=== PATIENT | female | born 1960 | race Caucasian/White ===

== ENCOUNTER → 2023-11-06 14:09 | Outpatient (REF) | payer OTHER, SELFPAY | LOC: WDC 14:09 | PROVIDERS: ATTENDING PHYSICIAN Nurse Practitioner Family | DX: Z12.31 Encounter for screening mammogram for malignant neoplasm of breast (principal) | CPT/HCPCS: 77063; 77067 ==

== ENCOUNTER 2023-11-26 04:42 | Emergency (ER) | payer OTHER, SELFPAY ==
[2023-11-26 04:46] VITALS: BP 156/81
--- NOTE | 2023-11-26 05:12 | ED.GENMED ---
History of Present Illness
General
Chief Complaint: Skin Problem
Source: patient
Exam Limitations: none
Time Seen by Provider: 11/26/23 05:03
Nursing documentation reviewed up to this point in time: agreed with
History of Present Illness
History of Present Illness:
This is a 63-year-old woman who was vacationing with her family in the [facility] last week when she developed redness, pain and swelling to her posterior lateral right upper arm just proximal to her elbow. Redness and swelling noted 1 week ago
and upon returning home from the [facility] she stopped in an urgent care on Thursday, 5 days ago was diagnosed with cellulitis and started on a course of Keflex which she has been taking 4 times daily. She does admit that redness and swelling
have been improving but she continues with some intermittent pain to the area and was concerned that 'we were missing something'
She has not had a fever nor chills. She denies pain to her elbow joint nor pain with range of motion of her elbow nor pain with range of motion of her shoulder.
She has not been taking anything for discomfort.
Her only daily medication is metoprolol.
No history of diabetes nor immunocompromise.
No history of similar episodes in the past.
Past History
Past History
ED Past Medical History: Arrthythmia (SVT)
ED Past Surgical History: None
Social History
Tobacco: Non-smoker
Alcohol: None
Drug: None
Personal:
Living: with family
Family History
Family History: Negative Diabetes, Hypertension or CAD
Phy Exam
Physical Exam
Physical Exam:
GENERAL: 63-year-old woman appears her stated age, bright and alert, pleasant, appears in no acute distress. is accompanying. Afebrile.
NECK: Nontender, no adenopathy.
ENT: Oral mucosa is moist.
LUNGS: No respiratory distress. Respirations are easy nonlabored.
ABDOMEN: Nontender.
NEUROLOGICAL: Alert and oriented x3, no focal neuro deficits. Gait is beverly and steady.
SKIN: Warm and dry, normal color, moderately tanned sun exposed skin. The distal aspect of the right upper arm along the posterolateral aspect has a very faint patch of erythema with minimal superficial skin desquamation. There is no soft tissue
swelling, no palpable heat, no palpable tenderness. There is no evidence of insect bite, no ulceration, no lymphangitis. There is no tenderness about the elbow, no joint effusion and full elbow range of motion without difficulty nor pain.
MUSCULOSKELETAL: No C/C/E. peripheral pulses are full and equal b/l. No palpable tenderness.
PSYCH: Normal and appropriate interaction.
Course
Orders/Labs/Results
Orders:
Orders
11/26/23 05:11
Ibuprofen [Motrin] 800 mg PO NOW STA
Vital Signs
Initial and Last Documented VS:
Initial Vital Signs
Temp Pulse Resp BP Pulse Ox
98.1 F 68 16 156/81 98
11/26/23 04:46 11/26/23 04:46 11/26/23 04:46 11/26/23 04:46 11/26/23 04:46
Last Documented Vital Signs
Temp Pulse Resp BP Pulse Ox
98.1 F 68 16 156/81 98
11/26/23 04:46 11/26/23 04:46 11/26/23 04:46 11/26/23 04:46 11/26/23 04:46
MDM/Problems Addressed
Differential Diagnosis Includes:
History and exam consistent with resolving cellulitis right upper arm. There is very minimal skin desquamation that appears to be healing skin in nature.
There is no palpable tenderness, no soft tissue swelling, no bony tenderness and full range of motion.
Recommend ibuprofen as needed for pain as well as recommend she continue cephalexin until finished as this appears to be effective treatment for cellulitis.
She has no history of diabetes nor immunocompromise and overall appears to be healing/resolving. No indication for radiologic studies nor laboratory studies.
I do recommend she apply local moisturizer to her skin and otherwise follow-up with primary care physician.
*Pulse Oximetry
Patient hypoxic: no
*Critical Care Note
Total Time (30-74mins, 75-104mins- exclusive of procedures): Not Applicable
ED Attending Note
-
Portions of this chart may have been created with voice recognition software.� Occasional wrong word or��sound alike� substitutions may have occurred due to the inherent limitations of voice recognition software.
Discharge Plan
Departure
Patient Disposition: Home (Routine Discharge)
Date of Disposition: 11/26/23
Time of Disposition: 05:21
Patient with high blood pressure during this ER visit?: Yes
Condition: Good
Discharge Problem:
resolving cellulitis right arm
Instructions: Cellulitis (Skin Infection), Adult (DC), BLOOD PRESSURE
Prescriptions:
New
ibuprofen 800 mg tablet
800 mg PO QIDPRN PRN (Reason: pain, fever) Qty: 30 0RF
No Action
metoprolol tartrate 25 mg Tablet
25 mg PO BID
Referrals:
Cayden Pearce MD [Non-Admitting Privileges] - Call in 1-3 days for appt
Interventions
Interventions:
*Risk Screen - Suicide Last Done: 11/26/23 04:46
*Neglect/Abuse Screening Last Done: 11/26/23 04:46
*ED COVID-19 Vaccine History Last Done: 11/26/23 04:46
Discharge Date and Time
Print Language: DOMINICAN
[2023-11-26] MEDS: MOTRIN 800 MG PO (05:25)
== END 2023-11-26 05:43 | disposition home or self-care (01) ==
LOC: EMR 04:42
PROVIDERS: EMERGENCY PHYSICIAN Emergency Medicine; FAMILY PHYSICIAN Family Medicine
DX: L03.113 Cellulitis of right upper limb (principal); M79.621 Pain in right upper arm; R03.0 Elevated blood-pressure reading, without diagnosis of hypertension; I47.10 Supraventricular tachycardia, unspecified; Z79.899 Other long term (current) drug therapy; Z88.8 Allergy status to other drugs, medicaments and biological substances
CPT/HCPCS: 99283

== ENCOUNTER 2025-03-02 22:54 | Emergency (ER) | payer OTHER, SELFPAY ==
[2025-03-02 23:04] VITALS: BP 156/95
[2025-03-02 23:35] VITALS: BP 131/86
[2025-03-02 23:40] VITALS: BMI 32.8
[2025-03-02 23:58] VITALS: BP 129/80; BP 133/74; BP 134/85; PULSE 80; PULSE 81; PULSE 92
[2025-03-03] VITALS: BP 134/85
[2025-03-03 00:01] VITALS: BP 129/80
--- NOTE | 2025-03-03 00:10 | ED.GENMED ---
History of Present Illness
General
Chief Complaint: Heart Rate Problem
Source: patient
Exam Limitations: none
Time Seen by Provider: 03/02/25 23:45
Nursing documentation reviewed up to this point in time: agreed with
History of Present Illness
History of Present Illness:
Patient with history of SVT over 10 years ago, noted on Holter monitor, currently taking metoprolol 25 mg twice daily, presents to ED secondary to sudden sensation of 'heart pounding', as she was walking upstairs to go to sleep. Denies dizziness.
Denies nausea or vomiting. Denies chest pain. Denies shortness of breath. Patient does report feeling 'awful'. When she was diagnosed with SVT 10 years ago, patient was experiencing multiple episodes of near syncope. While she was wearing
Holter monitor, although she was not expressing any symptoms, there was 1 brief episode of heart rate in 140s. Based on that reading, after discussion with her at [facility], patient was started on metoprolol twice daily. Since then,
patient has not had any similar symptoms. Denies recent illness. Denies recent change in diet. Denies recent travel. Patient states that she has been eating normally and drinking enough fluids during the day. At the time of my evaluation in ED,
patient states that her symptoms has resolved completely, confirmed by repeat EKG.
Past History
Past History
ED Past Medical History: Arrthythmia (SVT)
ED Past Surgical History: None
Social History
Tobacco: Non-smoker
Alcohol: None
Drug: None
Personal:
Living: with family
Family History
Family History: Negative Diabetes, Hypertension or CAD
Review of Systems
Review of Systems
Allergies reviewed?: Yes
All Other Systems: ROS reviewed and negative except as documented in HPI and ROS
Constitutional: Reports no symptoms
Respiratory: Reports no symptoms; Denies trouble breathing
Cardiac: Reports palpitations; Denies chest pain or syncope
ABD/GI: Reports no symptoms; Denies nausea or vomiting
Musculoskeletal: Reports no symptoms
Skin: Reports no symptoms
Neurological: Reports no symptoms; Denies dizzy or headache
Phy Exam
Physical Exam
Physical Exam:
Physical Exam
General: no apparent distress, not acutely ill. afebrile
Head: nc/at. eomi
Neck: supple. normal range of motion. no jvd.
Heart: s1/s2 regular rate and rhythm, no murmur
Lungs: no acute respiratory distress. clear bilaterally
Abdomen: normal bowel sounds. not tender.
Neuro: alert and oriented x 3. no focal neurological deficits
Skin: no rash
Psychiatric: well kept. interactive and cooperative
Extremities: no edema. no calf tenderness
Course
Orders/Labs/Results
Orders:
Orders
03/02/25 22:55
Electrocardiogram (*1) Urgent
Reason for Study: Other
Other Reason for Exam: Respiratory Distress
Cardiac Monitoring- Treatment ONCE
EKG- Treatment ONCE
IV Insert/Care/Rem.- Treatment PRN
O2 Therapy [RESP] Urgent
Titrate/Wean O2 to maintain O2 sat greater than (%): 93
Special Instructions: TO MAINTAIN CONTINUOUS O2 SATS >/= 93%
Pulse Ox/cont/shift [RESP] Urgent
Quantity: 1
Special Instructions: continuous pulse ox
03/02/25 23:35
EKG [Electrocardiogram (*1)] Urgent
Reason for Study: Other
Other Reason for Exam: SVT broke
EKG- Treatment ONCE
03/02/25 23:41
Complete Blood Count/With Diff Urgent
Comprehensive Metabolic Panel Urgent
NT-proBNP Urgent
TSH Urgent
Comment: ADDED
Troponin I Urgent
03/02/25 23:57
Add On- LAB Urgent
Comments:: add on
Tests Added?: TSH
03/03/25 00:06
Orthostatic VS- Treatment ONCE
03/03/25 00:12
Metoprolol Xl [Toprol Xl] 12.5 mg .ROUTE .STK-MED ONE
03/03/25 00:17
Metoprolol [Lopressor] 12.5 mg PO NOW STA
Abnormal Lab Results
03/02/25
23:41
Abs Immat Gran (auto) 0.1 H 10^3/uL
(0-0.05)
Absolute Monos (auto) 0.7 H 10^3/uL
(0.1-0.6)
Immature Gran % 0.9 H %
(0-0.5)
Carbon Dioxide 31 H mmol/L
(22-30)
Glucose 111 H mg/dl
(70-99)
03/02/25 23:41
03/02/25 23:41
Vital Signs
Initial and Last Documented VS:
Initial Vital Signs
Temp Pulse Resp BP Pulse Ox
98.2 F 143 20 156/95 95
03/02/25 23:04 03/02/25 23:04 03/02/25 23:04 03/02/25 23:04 03/02/25 23:04
Last Documented Vital Signs
Temp Pulse Resp BP Pulse Ox
98.2 F 71 15 130/79 98
03/02/25 23:04 03/03/25 01:35 03/03/25 01:35 03/03/25 01:35 03/03/25 01:35
MDM/Problems Addressed
MDM/Problems Addressed:
Shortly after arrival in ED, patient's symptoms resolved spontaneously. Repeat EKG reveals normal sinus rhythm. During extended course of observation afterwards, patient remains asymptomatic. Blood work within normal limits. Patient given copy
of blood work as well as EKG, to be discussed with her primary funeral home location manager, as an outpatient, including potential Holter monitoring. Patient expresses understanding at time of discharge, to the care of her family.
*Pulse Oximetry
SaO2: 97
Oxygen Mode of Delivery: Room air
Patient hypoxic: no
*EKG
Interpreted by ED Provider?: Yes
EKG Intrepretation Date: 03/03/25
Heart Rate: 143
Rate: tachycardiac
Rhythm: sinus
[place]: left axis deviation
Interval: normal interval
*Critical Care Note
Total Time (30-74mins, 75-104mins- exclusive of procedures): Not Applicable
ED Attending Note
-
Portions of this chart may have been created with voice recognition software.� Occasional wrong word or��sound alike� substitutions may have occurred due to the inherent limitations of voice recognition software.
Discharge Plan
Departure
Patient Disposition: Home (Routine Discharge)
Date of Disposition: 03/03/25
Time of Disposition: 01:39
Patient with high blood pressure during this ER visit?: No
Condition: Fair
Discharge Problem:
Heart palpitations
Instructions: Palpitations (DC)
Prescriptions:
No Action
metoprolol tartrate 25 mg Tablet
25 mg PO BID
ibuprofen 800 mg tablet
800 mg PO QIDPRN PRN (Reason: pain, fever) Qty: 30 0RF
Referrals:
UNKNOWN - PT DOES,NOT KNOW [Unknown Provider]
Activity Restrictions/Additional Instructions:
As discussed, please follow-up with your funeral home location manager for further evaluation and treatment. Please consider return to ED with worsening symptoms.
Interventions
Interventions:
*Risk Screen - Suicide Last Done: 03/02/25 23:04
*General Assessment Last Done: 03/02/25 23:04
*Neglect/Abuse Screening Last Done: 03/02/25 23:04
*ED- Fall Risk Assessment Last Done: 03/02/25 23:04
*ED COVID-19 Vaccine History Last Done: 03/02/25 23:04
*ED Influenza Vaccine History Last Done: 03/02/25 23:04
*Nursing Disposition Last Done: 03/03/25 02:04
ED- Cardiac Assessment Last Done: 03/02/25 23:33
ED- Pulmonary Assessment Last Done: 03/02/25 23:33
Discharge Date and Time
Discharge Date/Time: 03/03/25 02:05
Print Language: LITHUANIAN
[2025-03-03 00:22] LABS: Hematocrit 41.9 % (37.0-47.0); Hemoglobin 14.4 g/dL (12.0-16.0); Mean Corp Hgb Conc. 34.4 g/dL (33.0-37.0); Mean Corpuscular Volume 84.0 fL (81.0-99.0); Nucleated Red Blood Cells % 0 %; Platelet Count 296 10^3/uL (130-400); Red Cell Dist. Width 12.8 % (11.5-14.5)
[2025-03-03 00:23] LABS: ALT (SGPT) 21 U/L (0-35); AST (SGOT) 24 U/L (14-36); Albumin 4.5 g/dl (3.5-5.0); Alkaline Phosphatase 96 U/L (38-126); Blood Urea Nitrogen 17 mg/dl (7-17); Calcium 9.9 mg/dl (8.4-10.2); Carbon Dioxide 31 mmol/L (22-30); Chloride 104 mmol/L (98-107); Estimated Creatinine Clearance 99 ml/min; Glucose 111 mg/dl (70-99); Potassium 4.6 mmol/L (3.5-5.1); Sodium 139 mmol/L (135-145); Total Protein 7.3 g/dl (6.3-8.2); eGFR > 60.00
[2025-03-03 00:32] VITALS: BP 129/80; BP 133/74; BP 134/85; PULSE 80; PULSE 81; PULSE 92
[2025-03-03 00:33] LABS: Troponin I < 0.012 ng/ml
[2025-03-03] MEDS: LOPRESSOR 12.5 MG PO (00:38)
[2025-03-03 01:00] VITALS: BP 115/68
[2025-03-03 01:00] LABS: TSH 2.88 uIU/ml (0.47-4.68)
[2025-03-03 01:35] VITALS: BP 130/79
== END 2025-03-03 02:05 | disposition home or self-care (01) ==
LOC: EMR 22:54
PROVIDERS: Student in an Organized Health Care Education/Training Program; EMERGENCY PHYSICIAN Emergency Medicine; FAMILY PHYSICIAN Nurse Practitioner Family
DX: R00.2 Palpitations (principal); Z86.79 Personal history of other diseases of the circulatory system
CPT/HCPCS: 99284; 80053; 83880; 84443; 84484; 85025; 93005

== ENCOUNTER 2025-05-06 19:53 | Emergency (ER) | payer OTHER, SELFPAY ==
[2025-05-06 20:00] VITALS: BP 166/80
[2025-05-06 20:43] VITALS: BP 140/76
[2025-05-06 20:50] VITALS: BMI 32.2
[2025-05-06 20:55] VITALS: BP 136/71
[2025-05-06 21:00] VITALS: BP 131/69
[2025-05-06 21:39] LABS: Hematocrit 39.9 % (37.0-47.0); Hemoglobin 13.8 g/dL (12.0-16.0); Mean Corp Hgb Conc. 34.6 g/dL (33.0-37.0); Mean Corpuscular Volume 82.4 fL (81.0-99.0); Nucleated Red Blood Cells % 0 %; Platelet Count 308 10^3/uL (130-400); Red Cell Dist. Width 12.5 % (11.5-14.5)
--- NOTE | 2025-05-06 21:53 | ED.GENMED ---
History of Present Illness
General
Chief Complaint: Heart Rate Problem
Time Seen by Provider: 05/06/25 20:48
History of Present Illness
History of Present Illness:
64-year-old female with prior history of SVT presenting to the emergency department for concern of episode of SVT prior to arrival. Patient notes that she was at a alliance party prior to arrival, had racing heart rate. She follows with Dr. Monge from
cardiology. She is on 25 mg metoprolol twice daily. She took an extra half dose of her metoprolol prior to arrival by the time she arrived to the hospital, symptoms had improved. Denies any associated chest pain. She is scheduled to see her
linen controller in June to evaluate for etiology of her repeated episodes of SVT. Last episode was in March. Denies any alcohol present prior to arrival, or any concerns for dehydration. Notes she has been drinking fluids appropriately today.
Denies any increased rest or anxiety. Denies any fever or recent illness or additional acute medical complaints
Past History
Past History
ED Past Medical History: Arrthythmia (SVT)
ED Past Surgical History: None
Social History
Tobacco: Non-smoker
Alcohol: None
Drug: None
Personal:
Living: with family
Family History
Family History: Negative Diabetes, Hypertension or CAD
Phy Exam
Physical Exam
Physical Exam:
General: Well-appearing, no clinical signs of dehydration, nontoxic and in no acute distress
HEENT: protecting airway
Neck: appears supple
CV: Normal heart rate, regular rhythm
Resp: No accessory muscle use, no increased work of breathing, lungs clear to auscultation bilaterally
Abd: Soft and non-distended, no tenderness to palpation
Extremities: No deformities, no swelling
Neuro: alert, no focal neurologic deficit
: deferred
Rectal: deferred
Psych: Normal affect
Skin: Intact
Course
Orders/Labs/Results
Orders:
Orders
05/06/25 19:54
ECG [Electrocardiogram (*1)] Urgent
Reason for Study: Tachycardia
EKG- Treatment ONCE
05/06/25 21:29
Complete Blood Count/With Diff Urgent
Comprehensive Metabolic Panel Urgent
Abnormal Lab Results
05/06/25
21:29
Absolute Monos (auto) 0.7 H 10^3/uL
(0.1-0.6)
BUN 21 H mg/dl
(7-17)
Glucose 138 H mg/dl
(70-99)
05/06/25 21:29
05/06/25 21:29
Vital Signs
Initial and Last Documented VS:
Initial Vital Signs
Temp Pulse Resp BP Pulse Ox
98.0 F 89 20 166/80 96
05/06/25 20:00 05/06/25 20:00 05/06/25 20:00 05/06/25 20:00 05/06/25 20:00
Last Documented Vital Signs
Temp Pulse Resp BP Pulse Ox
98.0 F 72 16 131/69 97
05/06/25 20:00 05/06/25 21:30 05/06/25 21:30 05/06/25 21:00 05/06/25 21:56
MDM/Problems Addressed
MDM/Problems Addressed:
64-year-old female with prior history of SVT presenting to the emergency department with episode of suspected SVT prior to arrival. Vital signs on arrival are normal.
On exam patient resting comfortably, no acute distress or discomfort. Patient with presently normal heart rate. EKG confirms no evidence of SVT, sinus rhythm, with no acute ischemic changes from prior. Patient reports metoprolol prior to arrival
with subsequent symptoms. Patient reports history of Holter monitor in the past, without detection of additional acute arrhythmias. She is currently following with cardiology, has an upcoming procedure scheduled to evaluate possible source of
repeated episodes. Will screen with laboratory analysis, however at this time hemodynamically stable.
22:30 - Patient's labs are unremarkable. On reassessment, patient remains in a sinus rhythm. Feel stable for discharge, with close and will follow-up with cardiology. Return precautions discussed and patient verbalized understanding
*Pulse Oximetry
SaO2: 97
Oxygen Mode of Delivery: Room air
Patient hypoxic: no
*EKG
Interpreted by ED Provider?: Yes
EKG Intrepretation Date: 05/06/25
EKG Intrepretation Time: 22:26
Interpretation: normal
Comparison EKG: no changes (03/02/25)
Heart Rate: 85
Rate: normal
Rhythm: sinus
QRS Pattern: right bundle branch block
Ischemia: no ischemia
*Critical Care Note
Total Time (30-74mins, 75-104mins- exclusive of procedures): Not Applicable
ED Attending Note
-
Portions of this chart may have been created with voice recognition software.� Occasional wrong word or��sound alike� substitutions may have occurred due to the inherent limitations of voice recognition software.
Discharge Plan
Departure
Prescriptions:
No Action
metoprolol tartrate 25 mg Tablet
25 mg PO BID
ibuprofen 800 mg tablet
800 mg PO QIDPRN PRN (Reason: pain, fever) Qty: 30 0RF
Referrals:
Napoleon Zamudio, JIL [Family Provider, General]
Interventions
Interventions:
*General Assessment Last Done: 05/06/25 20:00
*ED COVID-19 Vaccine History Last Done: 05/06/25 20:50
*ED Influenza Vaccine History Last Done: 05/06/25 20:50
[facility] Fall Risk Assessment Tool Last Done: 05/06/25 20:51
ED- Cardiac Assessment Last Done: 05/06/25 20:50
ED- Pulmonary Assessment Last Done: 05/06/25 20:50
Discharge Date and Time
Print Language: PAKISTANI
[2025-05-06 22:01] LABS: ALT (SGPT) 20 U/L (0-35); AST (SGOT) 24 U/L (14-36); Albumin 4.4 g/dl (3.5-5.0); Alkaline Phosphatase 105 U/L (38-126); Blood Urea Nitrogen 21 mg/dl (7-17); Calcium 9.5 mg/dl (8.4-10.2); Carbon Dioxide 28 mmol/L (22-30); Chloride 104 mmol/L (98-107); Estimated Creatinine Clearance 85 ml/min; Glucose 138 mg/dl (70-99); Potassium 4.3 mmol/L (3.5-5.1); Sodium 138 mmol/L (135-145); Total Protein 7.2 g/dl (6.3-8.2); eGFR > 60.00
== END 2025-05-06 22:48 | disposition home or self-care (01) ==
LOC: EMR 19:53
PROVIDERS: EMERGENCY PHYSICIAN Student in an Organized Health Care Education/Training Program; FAMILY PHYSICIAN Nurse Practitioner Family
DX: R00.0 Tachycardia, unspecified (principal); I45.10 Unspecified right bundle-branch block; Z79.899 Other long term (current) drug therapy
CPT/HCPCS: 99284; 80053; 85025; 93005

== ENCOUNTER 2025-05-31 08:46 | Day surgery (SDC) | payer OTHER, SELFPAY ==
[2025-05-19 09:52] VITALS: BMI 32.8
--- NOTE | 2025-05-19 10:34 | HPS.HSE ---
Family Physician
-
Family Physician: JIL Mahan
Chief Complaint
-
Supraventricular tachycardia.
History of Present Illness
The patient is a 64 year old female presenting today with a history of supraventricular tachycardia. She was initially diagnosed with this arrhythmia in 2016. Electrophysiology at that time recommended an ablation; however, given this was
an isolated episode, she chose to pursue medical therapy instead. She unfortunately has been experiencing recurrent SVT episodes more recently. She does note mild dyspnea, palpitations, and fatigue associated with this diagnosis. One recent episode
prompted an ED visit for further evaluation. She is on current pharmacological therapy with Metoprolol Tartrate. She notes that her symptoms do affect her overall quality of life. She is afraid to do anything strenuous due to fears of inducing an
SVT episode. It is recommended she proceed with SVT ablation at this time for more definitive arrhythmia management. She denies any complaints today such as chest pain, shortness of breath at rest, nausea, vomiting, diarrhea, lightheadedness,
dizziness, cough, sore throat, or fever.
Medical History
Past Medical History
Past Medical History: Reports Other
Additional Past Medical History:
1. Supraventricular tachycardia, pharmacological therapy with Metoprolol Tartrate.
2. Hypertension.
3. Left anterior fascicular block.
4. Obesity, BMI 32.8.
Past Surgical History: Reports Other ([place] teeth extraction. )
Social History
Tobacco: Non-smoker
Alcohol: None
Personal:
Living: Other (She lives in a 2 story home with her , daughter, and son who is currently home from college. )
Family History
Family History: Not pertinent
Allergies / Home Medications
Allergy/Medication List:
Home medications: Metoprolol Tartrate 25 mg p.o. twice a day.
Allergies: Medrol. She reports a sensitivity to most steroids in general.
Review of Systems
-
A 12 point ROS was completed and negative except as noted: Yes
Physical Exam
Vital Signs
Blood pressure 133/66. Heart rate 58. Respirations 18. Pulse ox 96% on room air.
Height 5 feet, 6 inches. Weight 92.2 kg. BMI 32.8.
Physical Exam
General: Well Developed, Well Nourished and No Apparent Distress
HEENT: NormoCephalic, Moist mucous membranes, Atraumatic and PERRLA
Respiratory: Clear
Cardiac: Bradycardia
GI: Soft, Non Tender, Non Distended and Other (Obese. )
Musculoskeletal: No Edema and Normal Gait & Station
Skin: Warm and Dry
Neuro: AO x 3 and Nonfocal/grossly intact
Laboratory Results
-
DIAGNOSTIC STUDIES as of 05/19/2025: White blood cell count 7.7. Hemoglobin 14.0. Platelet count 293,000. Sodium 138. Potassium 4.3. BUN 17. Creatinine 0.6. Glucose 80. Calcium 9.3. Magnesium 2.1. AST 22. ALT 19. Albumin 4.4.
EKG 05/19/2025: Sinus bradycardia. Left anterior fascicular block. Cannot rule out inferior infarct, age undetermined. Cannot rule out anterior infarct, cited on or before 04/22/2015.
Impression/Plan
-
IMPRESSION/PLAN:
1. Supraventricular tachycardia: The patient is in need of SVT ablation with Dr. Diony Gallegos on 05/31/2025. The benefits and risks of the procedure have been explained to the patient. The patient understands these risks and wishes to proceed. She
will preferably hold her Metoprolol Tartrate 5 days prior to her ablation.
[2025-05-19 10:57] LABS: Hematocrit 41.6 % (37.0-47.0); Hemoglobin 14.0 g/dL (12.0-16.0); Mean Corp Hgb Conc. 33.7 g/dL (33.0-37.0); Mean Corpuscular Volume 84.0 fL (81.0-99.0); Nucleated Red Blood Cells % 0 %; Platelet Count 293 10^3/uL (130-400); Red Cell Dist. Width 12.8 % (11.5-14.5)
[2025-05-19 11:05] LABS: ALT (SGPT) 19 U/L (0-35); AST (SGOT) 22 U/L (14-36); Albumin 4.4 g/dl (3.5-5.0); Alkaline Phosphatase 67 U/L (38-126); Blood Urea Nitrogen 17 mg/dl (7-17); Calcium 9.3 mg/dl (8.4-10.2); Carbon Dioxide 27 mmol/L (22-30); Chloride 104 mmol/L (98-107); Estimated Creatinine Clearance 111 ml/min; Glucose 80 mg/dl (70-99); Magnesium 2.1 mg/dl (1.6-2.3); Potassium 4.3 mmol/L (3.5-5.1); Sodium 138 mmol/L (135-145); Total Protein 7.4 g/dl (6.3-8.2); eGFR > 60.00
[2025-05-31] VITALS (11 sets, daily range): BP systolic 121–152; BP diastolic 58–98; BMI 32.8
--- NOTE | 2025-05-31 13:19 | ITS.CL.ABL ---
[employer] - Ablation
Ablation
Procedure Report:
Primary Physician: Dr Napoleon Zamudio
Procedure Date: 05/31/2025
Procedure
Electrophysiology Study (05624)
Left atrial recording / pacing
IV drug for arrhythmia induction
Patient History
See H&P for full details
Patient a pleasant 62-year-old female with a past medical history significant for hypertension, palpitations, and symptomatic paroxysmal SVT. SVT by EKG on 03/02/2025 demonstrated a 2: 1 atrial tachycardia versus atrial flutter. Event monitor
demonstrated nonsustained AT with PACs.
Method:
After informed consent was obtained, the patient was brought to the EP lab in a post-absorptive, non-sedated state. A peripheral IV was in place. Continuous electrocardiography, blood pressure and pulse oximetry monitoring was initiated and
cardioversion / defibrillator electrodes were positioned on the chest in an AP orientation. A 'time-out' was called. Conscious sedation was administered with the assistance of the anesthesia services, and local anesthesia was given at the femoral
vein access sites.
Using modified Seldinger technique, vascular access was achieved under ultrasound guidance (images saved to record) and sheaths were placed. Multipolar catheters were advanced to the coronary sinus, His bundle recording position, right ventricle,
and high right atrium. Following the determination of baseline conduction intervals, comprehensive EP study was performed. Pacing and recording from the RV, HBE, and CS / LA was performed.
Procedure Synopsis:
The patient entered the room in sinus rhythm. Following access as described above, catheters were placed in the RV apex, His bundle region, and coronary sinus. Baseline testing and measurements were then performed. With RV apical pacing VA
Wenckebach cycle length was noted at 350 ms. With RV apical pacing, patient was noted to go into brief nonsustained atrial fibrillation which self terminated. No further recurrence of atrial fibrillation was noted. Para-Hisian pacing demonstrated
a viri response. AV Wenckebach cycle length was noted to 330 ms. With atrial pacing with a single extra stimulus, no AH jump was noted or induction of tachycardia. Sedation was reduced and isoproterenol was started. Briefly pacing was then
performed with attempts for induction of arrhythmia. No arrhythmias were induced. Isoproterenol was increased with appropriate response. Sedation was discontinued. Again, with atrial pacing no arrhythmias were induced. No evidence of AH jump or
tachycardia. During study, patient had PACs and brief nonsustained AT lasting no more than 5�6 beats. Isoproterenol was discontinued while patient remained off sedation and testing again performed. Again, no evidence of tachycardia or arrhythmia
induction. Patient heart rate returned to baseline and maneuvers once more performed. No evidence of AH jump, tachycardia, or arrhythmia. Baseline numerals were once more recorded and similar to baseline and initiation of procedure. Catheters
were removed and hemostasis achieved as described below.
Fluoroscopy time:
0.8 min; 1.47 mGy
Estimated Blood Loss
5 mL
Complications
None
At the end of the procedure, all catheters and sheaths were removed and hemostasis was assured with Vascade per sheath. The patient was returned to the recovery area in stable condition.
Access Sites:
Left Femoral Vein: 2 sheaths (7 Fr, 6 Fr)
Right Femoral Vein: 2 sheaths (9 Fr, 6 Fr)
Baseline Intervals:
Rhythm: SR
GA: 170 ms
AH: 101 ms
HV: 51 ms
QRS: 111 ms
QT: 340 ms
QTc: 410 ms
A-A: 689 ms
R-R: 689 ms
Post-Procedure Intervals:
GA: 180 ms
AH: 70 ms
HV: 58 ms
QRS: 97 ms
QT: 386 ms
AV Conduction:
- AVWB: 330 ms
- VAWB: 350 ms
Refractory Periods:
- AVNERP: 600/210 ms
- AERP: 600/210 ms
Recommendations:
- Bedrest with straight-leg precautions as ordered
- Anticipate same day discharge if patient meeting clinical metrics
- Discontinue metoprolol, start diltiazem 120 mg daily
- Plan for follow-up in office as scheduled
Diony Gallegos, , FACC, FHRS
Clinical Cardiac Electrophysiology
cc: Dr Napoleon Zamudio
[2025-05-31] MEDS: TYLENOL 650 MG PO (16:55)
== END 2025-05-31 17:45 | disposition home or self-care (01) ==
LOC: CATH 08:46
PROVIDERS: ATTENDING PHYSICIAN Internal Medicine Cardiovascular Disease; FAMILY PHYSICIAN Nurse Practitioner Family
DX: I47.10 Supraventricular tachycardia, unspecified (principal); I10 Essential (primary) hypertension; I44.4 Left anterior fascicular block; Z79.899 Other long term (current) drug therapy; E66.9 Obesity, unspecified; Z68.32 Body mass index [BMI] 32.0-32.9, adult
CPT/HCPCS: C1730; C1894; C1892; 36415; 80053; 83735; 85025; 93005; 93623; 93653; C1760